=== PATIENT | female | born 1995 | race Caucasian/White ===

== ENCOUNTER 2021-09-11 10:17 | Emergency (ER) | payer SELFPAY ==
[~2021-09-11] VITALS: Ht 170.2 cm; Wt 73.0 kg
[2021-09-11 10:24] VITALS: BP 103/67
[2021-09-11] MEDS ORDERED: KETOROLAC 60MG/2ML VIAL IM ONE (11:00)
[2021-09-11] MEDS ORDERED: ACET-2708 MT ×2 (11:08)
[2021-09-11] MEDS ORDERED: BENZ1LOZ60 MT ×2 (11:08)
[2021-09-11] MEDS ORDERED: HYDROCODONE/ACETAMINOPHEN 5/325MG TABLET PO ONE (11:15)
[2021-09-11] MEDS ORDERED: NAPR-681 MT (11:16)
== END 2021-09-11 11:53 | disposition home or self-care (01) ==
LOC: ER 10:46
DX: S93.491A Sprain of other ligament of right ankle, initial encounter (principal); Y93.01 Activity, walking, marching and hiking; Y93.9 Activity, unspecified; Y92.9 Unspecified place or not applicable; Z88.6 Allergy status to analgesic agent
CPT/HCPCS: 29515; 73610; 99283